=== PATIENT | male | born 1945 | race Caucasian/White ===

== ENCOUNTER 2018-03-23 06:00 | Inpatient (IN) | payer MEDICARE ==
[2018-03-20 10:38] LABS: BASOPHILS % 0.4 % (0.0-1.0); EOSINOPHILS # (AUTO) 0.3 (0.0-0.4); HEMATOCRIT 47.6 % (38.2-49.6); HEMOGLOBIN 15.9 g/dL (14.0-18.0); LYMPHOCYTES % 26.2 % (18.0-39.1); MEAN CORPUSCULAR HEMOGLOBIN 29.4 pg (28-32); MEAN CORPUSCULAR HGB CONC 33.4 g/dL (31-35); MEAN CORPUSCULAR VOLUME 88.1 fL (81-99); MONOCYTES # (AUTO) 0.6 (0.2-0.8); MONOCYTES % 7.5 % (4.4-11.3); NEUTROPHILS # (AUTO) 4.7 (2.1-6.9); NEUTROPHILS % 61.4 % (38.7-80.0); PLATELET COUNT 196 x10e3/uL (140-360); RED CELL DISTRIBUTION WIDTH 13.9 % (11.7-14.4)
--- NOTE | 2018-03-20 11:19 | Diagnostic Imaging Report ---
PROCEDURE: Frontal and lateral views of the chest. COMPARISON: Portable chest 01/27/2017. INDICATIONS: PREOP CXR FINDINGS: Lines/tubes: None. Lungs: The lungs are well inflated and clear. There is no evidence of pneumonia or pulmonary edema. Pleura: There is no pleural effusion or pneumothorax. Stable tenting of the right hemidiaphragm. Heart and mediastinum: The heart and the mediastinum are normal. Atherosclerotic calcifications. Bones: No acute bony abnormality. Degenerative changes of the thoracic spine. IMPRESSION: No acute radiographic abnormality. Stable tenting of the right hemidiaphragm. Dictated by: Jesus Boswell M.D. on 03/20/2018 at 11:21 Electronically approved by: Jesus Boswell M.D. on 03/20/2018 at 11:21
[~2018-03-23] VITALS: Ht 182.9 cm; Wt 90.3 kg
[~2018-03-23 06:00] MED LIST: AMIODARONE HCL200 MG PO; COUMADIN2 MG; LISINOPRIL2.5 MG PO; METOPROLOL TART25 MG PO; ROPIVACAINE 246.25 MG, EPINEPHRINE HCL 1:1000 0.5 MG, CLONIDINE HCL 0.08 MG, KETOROLAC ... INJ ONE; WARFARIN SODIU2.5 MG PO; WARFARIN SODIUM1 MG PO
--- OUTSIDE RECORDS SUMMARY | 2018-03-23 06:02 | XMS REPORT ---
Author Author [facility] Address Unknown Phone Unavailable Care Team Providers Care Emergency Telecommunications Dispatcher Name Role Phone LALIT DOBBS Unavailable Unavailable Problems This patient has no known problems. Allergies, Adverse Reactions, Alerts This patient has no known allergies or adverse reactions. Medications This patient has no known medications. Results Test Description Test Time Test Comments Text Results Atomic Results Result Comments CHEST 2 VIEWS [place] [id number] Patient Name: FLAVIO GRAHAM MR #: [id number] : 1945 Age/Sex: 73/M Req #: [id number] Adm Physician: Ordered by: LALIT DOBBS MD Report #: [id number] Location: OR Room/Bed: Procedure: [id number] DX/ CHEST 2 VIEWS Exam Date: 03/20/18 Exam Time: 1054 REPORT STATUS: Signed PROCEDURE: Frontal and lateral views of the chest. COMPARISON: Portable chest 01/27/2017. INDICATIONS: PREOP CXR FINDINGS: Lines/tubes: None. Lungs: The lungs are well inflated and clear. There is no evidence of pneumonia or pulmonary edema. Pleura: There is no pleural effusion or pneumothorax. Stable tenting of the right hemidiaphragm. Heart and mediastinum: The heart and the mediastinum are normal. Atherosclerotic calcifications. Bones: No acute bony abnormality. Degenerative changes of the thoracic spine. IMPRESSION: No acute radiographic abnormality. Stable tenting of the right hemidiaphragm. Dictated by: Cortney Mike M.D. on 03/20/2018 at 11: 21 Electronically approved by: Cortney Mike M.D. on 03/20/2018 at 11:21 Dictated By: CORTNEY MIKE MD 1121 Transcribed By: TAMI on 03/20/18 1121 COPY TO : LALIT DOBBS MD
[2018-03-23] MEDS ORDERED: BACITRACIN 50,000 UNIT VIAL ONE (06:43)
[2018-03-23] MEDS ORDERED: TRANEXAMIC ACID 1,000 MG/10 ML ML ONE (06:43)
[2018-03-23] MEDS ORDERED: MUPIROCIN 2% OINT 22 GM TUBE ONE (06:43)
[2018-03-23] MEDS ORDERED: CELECOXIB 200 MG CAP ONE (06:50)
[2018-03-23] MEDS ORDERED: GABAPENTIN 300 MG CAP ONE (06:50)
[2018-03-23] MEDS ORDERED: DEXAMETHASONE SOD PHOS 10 MG/1 ML VIAL ONE (06:50)
[2018-03-23] MEDS ORDERED: CEFAZOLIN SOD 2 GM/D5W 50ML 50 ML IV ONE (06:51)
[2018-03-23] MEDS ORDERED: BUPIVACAINE 7.5MG/ML /DEXTROSE 82.5MG/ML 2 ML AMP INJ ONE (07:32)
[2018-03-23 07:42] LABS: INR 1.13; PROTHROMBIN TIME 13.6 seconds (11.9-14.5)
[2018-03-23 07:43] LABS: PARTIAL THROMBOPLASTIN TIME 28.7 seconds (23.8-35.5)
[2018-03-23] MEDS: SODIUM CHLORIDE 0.9% 1000ML 1,000 ML IV SCH ×2 (10:03→17:02)
[2018-03-23] MEDS ORDERED: HYDROCODONE/APAP 7.5MG-325MG 1 EA TAB PO PRN ×2 (10:15)
[2018-03-23] MEDS ORDERED: HYDROCODONE/APAP 5MG-325MG TAB PO PRN ×2 (10:15)
[2018-03-23] MEDS ORDERED: ZOLPIDEM TARTRATE 5 MG TAB PO PRN (10:15)
[2018-03-23] MEDS ORDERED: PROMETHAZINE HCL (IM) 25 MG/ML VIAL INJ PRN (10:15)
[2018-03-23] MEDS ORDERED: DIPHENHYDRAMINE HCL INJ 50 MG/ML VIAL IM/IV PRN (10:15)
[2018-03-23] MEDS ORDERED: DOCUSATE SODIUM 100 MG CAP PO PRN (10:15)
[2018-03-23] MEDS ORDERED: KETOROLAC TROMETHAMINE 30 MG/ML VIAL IV PRN (10:15)
[2018-03-23] MEDS ORDERED: ONDANSETRON HCL INJ 2 MG/ML VIAL IV PRN (10:15)
[2018-03-23] MEDS ORDERED: ACETAMINOPHEN 650 MG SUPP PR PRN (10:15)
[2018-03-23] MEDS ORDERED: ONDANSETRON HCL 4 MG ORAL DISINTEGRATING TAB SL PRN (10:30)
--- NOTE | 2018-03-23 10:58 | Diagnostic Imaging Report ---
PROCEDURE:X-RAY PELVIS, AP VIEW COMPARISON:None. INDICATIONS:STATUS POST RIGHT HIP SURGERY FINDINGS: Refer to conclusion CONCLUSION: Status post total right hip arthroplasty with intact acetabular cup and femoral stem components. Overlying subcutaneous gas and skin alyse compatible with recent surgery. Cortical step-off along the lateral aspect of the proximal femoral diaphysis adjacent to the orthopedic hardware compatible with a nondisplaced fracture. Partially visualized left proximal femoral surgical hardware. Dictated by: John Paul Nieves M.D. on 03/23/2018 at 11:00 Electronically approved by: John Paul Nieves M.D. on 03/23/2018 at 11:00
[2018-03-23] MEDS ORDERED: ACETAMINOPHEN 1000 MG/100 ML IV SCH (12:00)
[2018-03-23 13:50] VITALS: BP 100/64
[2018-03-23] MEDS ORDERED: CEFAZOLIN SOD 1 GM/NS 50ML 50 ML IV SCH ×2 (14:00)
--- NOTE | 2018-03-23 14:01 | Operative Report ---
DATE OF PROCEDURE: March 23, 2018 BEARING INSPECTOR: Gabriel Dudley PA-C The patient was brought to the operating room for induction of anesthesia. Throughout this case, my PA's assistance was necessary for retraction of soft tissue and positioning of the extremity. This allows for efficient and technically successful execution of the operation and is considered medically necessary. PREOPERATIVE DIAGNOSIS: Posttraumatic osteoarthritis, right hip. POSTOPERATIVE DIAGNOSIS: Posttraumatic osteoarthritis, right hip. PROCEDURE: Right hip hardware removal and conversion to total hip arthroplasty. INDICATIONS: The patient is a 73-year-old gentleman who has advanced osteoarthritis of his right hip. He is status post a femoral neck fracture some years ago treated with cannulated screws. The findings and options have been discussed. We plan on hardware removal and conversion to a total hip arthroplasty. The risks and benefits were explained. He states he understands and wishes to proceed. DESCRIPTION OF PROCEDURE: The patient was brought to the operating room and given a spinal anesthetic. He received prophylactic antibiotics and tranexamic acid in the holding area. He was positioned in the left lateral decubitus position. His right hip was prepped and draped in a sterile manner. A preoperative time out was performed. Initial attention was directed towards removing the 3 cannulated screws. A posterior approach was made to the right hip. The tensor fascia and gluteal fascia were incised. A deep Charnley retractor was placed. Without extending the incision, I could place my finger down the lateral thigh and palpate the head of the screw. A secondary poke hole incision was made in the distal right thigh. The screwdriver was advanced through this incision, and ultimately allowed me to remove all 3 cannulated screws. Attention was then directed towards the hip. The posterior capsule was carefully exposed. Hemostasis was obtained with electrocautery. The short external rotators were released. The hip was noted to be markedly contracted. A posterior capsulotomy was performed. The hip was dislocated. Complete loss of articular cartilage was noted. A large posterior osteophyte was noted on the femoral head. An oscillating saw was used to resect the femoral head. Acetabular retractors were placed. The remnant of the labrum was excised. The true floor of the acetabulum was then established with a 46-mm reamer. The socket was then carefully reamed up to 57 mm. A Colleen [employer] osteo-T shell was then impacted into place. This had a 58 mm outer diameter. Fixation was felt to be good, but was augmented with a single 25-mm screw placed into the ilium. A highly cross link polyethylene liner with a 36 mm inner diameter was then seated into place. Care was taken to make sure that there was no evidence of soft tissue interposition. Throughout this portion of the case, the hip was thoroughly irrigated a number of different times using a shower-tip pulsatile lavage. A large anterior osteophyte off the anterior rim of the socket was then excised with a curved osteotome. The socket was packed with a moistly soaked lap sponge. Attention was directed towards the proximal femur. A box cutting osteotome and taper pin reamer were used to establish entry into the femoral canal. The Taperloc broaches were then impacted. It took an 18-mm stem to provide good canal fill and rotational stability for trial reductions. A +3-mm head was felt to optimally restore limb length and provide stability. The trial implants were removed. The hip was further irrigated with a pulsatile lavage. A 100 mL premixed pericapsular injection was placed around the soft tissue. The implants were seated and a final reduction was performed. A ceramic head was chosen. The posterior capsulotomy was then repaired with interrupted #2 Ethibond. The short external rotators were contracted and not repairable. The tensor fascia and gluteal fascia were closed with interrupted #2 Ethibond. The skin was closed with subcuticular Vicryl and alyse. A sterile bandage was applied. He was returned to the supine position and transported to the recovery room in stable condition. Estimated blood loss was 100 mL. At the end the procedure, all needle and sponge counts were correct. Job#: [id number] JOHN
[2018-03-23 14:18] VITALS: BP 100/64
[2018-03-23] MEDS ORDERED: FENTANYL CITRATE/PF 100MCG/2 ML INJ ONE (14:46)
[2018-03-23] MEDS ORDERED: MIDAZOLAM HCL 2 MG/2 ML VIAL ONE (14:46)
[2018-03-23 16:04] VITALS: BP 82/50
[2018-03-23] MEDS: METOPROLOL TARTRATE 25 MG TAB PO SCH (16:04)
[2018-03-23] MEDS: CEFAZOLIN SOD 1 GM VIAL IV SCH (16:45)
[2018-03-23] MEDS ORDERED: CELECOXIB 100 MG CAP PO SCH (17:00)
[2018-03-23] MEDS: CELECOXIB 200 MG CAP PO SCH (17:45)
[2018-03-23] MEDS: ASPIRIN 325 MG TAB PO SCH (17:45)
[2018-03-23] MEDS: ACETAMINOPHEN 1000 MG/100 ML IV SCH (17:45)
[2018-03-23] MEDS ORDERED: DEXAMETHASONE SOD PHOS INJ 4 MG/ML VIAL ONE (19:43)
[2018-03-23] MEDS ORDERED: PROPOFOL IV EMULSION 10 MG/ML 20 ML VIAL ONE (19:43)
[2018-03-23] MEDS ORDERED: LIDOCAINE HCL 2% LOCAL INJ 5 ML SDV VIAL INJ ONE (19:43)
[2018-03-23 20:00] VITALS: BP 89/54
[2018-03-23 20:35] VITALS: BP 89/54
[2018-03-24] VITALS: BP 103/52
[2018-03-24] MEDS: ACETAMINOPHEN 1000 MG/100 ML IV SCH ×2 (01:14→05:55)
[2018-03-24] MEDS: SODIUM CHLORIDE 0.9% 1000ML 1,000 ML IV SCH (01:14)
[2018-03-24] MEDS: CEFAZOLIN SOD 1 GM VIAL IV SCH ×2 (01:46→08:17)
[2018-03-24 04:00] VITALS: BP 92/55
[2018-03-24 07:08] LABS: HEMATOCRIT 32.3 % (38.2-49.6)
[2018-03-24 08:09] VITALS: BP 92/53
[2018-03-24] MEDS: CELECOXIB 200 MG CAP PO SCH (08:17)
[2018-03-24] MEDS: ASPIRIN 325 MG TAB PO SCH (08:17)
[2018-03-24] MEDS: METOPROLOL TARTRATE 25 MG TAB PO SCH (08:18)
[2018-03-24 09:37] VITALS: BP 92/53
[2018-03-24] MEDS ORDERED: ACETAMINOPHEN 1000 MG/100 ML IV PRN ×2 (10:15)
[2018-03-24 13:25] VITALS: BP 102/52
== END 2018-03-24 14:41 | disposition home health service (06) | DRG 470 ==
LOC: OR 06:00 → MED/SURG 13:10
PROVIDERS: ADMIT Specialist; ATTEND Specialist
PROC: 0SR9039 Replacement of Right Hip Joint with Ceramic Synthetic Substitute, Cemented, Open Approach (ICD-10-PCS; principal; 2018-03-23 08:00)
DX: M16.51 Unilateral post-traumatic osteoarthritis, right hip (principal); S72.04 Fracture of base of neck of femur; M17.11 Unilateral primary osteoarthritis, right knee; I48.91 Unspecified atrial fibrillation; Z86.711 Personal history of pulmonary embolism; I25.10 Atherosclerotic heart disease of native coronary artery without angina pectoris; D64.9 Anemia, unspecified; I95.9 Hypotension, unspecified; Z79.01 Long term (current) use of anticoagulants
CPT/HCPCS: 36415; 71046; 72170; 85014; 85018; 85025; 85610; 85730; 86850; 86900; 86920; C1713; J0171; J0690; J1100; J1885; J2001; J2250; J2795; J7030

== ENCOUNTER 2018-04-08 09:59 | Outpatient (RCR) | payer MEDICARE ==
[~2018-04-08 09:59] MED LIST changes: -ROPIVACAINE 246.25 MG, EPINEPHRINE HCL 1:1000 0.5 MG, CLONIDINE HCL 0.08 MG, KETOROLAC ... INJ ONE
== END 2018-04-09 ==
LOC: PT 09:59
PROVIDERS: ATTEND Physician Assistant
DX: Z96.641 Presence of right artificial hip joint (principal); Z47.1 Aftercare following joint replacement surgery; M16.11 Unilateral primary osteoarthritis, right hip
CPT/HCPCS: 97110 ×6; 97162; G8978; G8979

== ENCOUNTER 2018-04-24 10:51 | Outpatient (RCR) | payer MEDICARE | END 2018-05-09 | LOC: PT 10:51 | PROVIDERS: ATTEND Physician Assistant | DX: Z96.641 Presence of right artificial hip joint (principal); Z47.1 Aftercare following joint replacement surgery; M16.11 Unilateral primary osteoarthritis, right hip; M25.551 Pain in right hip; M62.81 Muscle weakness (generalized); R26.2 Difficulty in walking, not elsewhere classified | CPT/HCPCS: 97110 ×7; 97116; G8978; G8979 ==

== ENCOUNTER 2019-02-02 10:12 | Emergency (ER) | payer MEDICARE, OTHER ==
[~2019-02-02] VITALS: Ht 182.9 cm; Wt 85.3 kg
[2019-02-02 10:39] LABS: BASOPHILS # (AUTO) 0.1 (0.0-0.1); BASOPHILS % 0.6 % (0.0-1.0); EOSINOPHILS # (AUTO) 0.3 (0.0-0.4); HEMOGLOBIN 15.8 g/dL (14.0-18.0); LYMPHOCYTES # (AUTO) 1.9 (1.0-3.2); LYMPHOCYTES % 25.1 % (18.0-39.1); MEAN CORPUSCULAR HGB CONC 32.2 g/dL (31-35); MEAN CORPUSCULAR VOLUME 90.1 fL (81-99); MONOCYTES # (AUTO) 0.6 (0.2-0.8); MONOCYTES % 7.9 % (4.4-11.3); NEUTROPHILS # (AUTO) 4.8 (2.1-6.9); NEUTROPHILS % 61.9 % (38.7-80.0); PLATELET COUNT 300 x10e3/uL (140-360); RED BLOOD COUNT 5.44 x10e6/uL (4.3-5.7); RED CELL DISTRIBUTION WIDTH 14.2 % (11.7-14.4)
[2019-02-02 10:45] LABS: INR 2.14; PROTHROMBIN TIME 24.6 seconds (11.9-14.5)
[2019-02-02 10:46] LABS: PARTIAL THROMBOPLASTIN TIME 43.2 seconds (23.8-35.5)
[2019-02-02 10:54] LABS: ALANINE AMINOTRANSFERASE 14 IU/L (0-55); ALBUMIN 3.5 g/dL (3.5-5.0); ALBUMIN/GLOBULIN RATIO 0.8 (0.8-2.0); ALKALINE PHOSPHATASE 55 IU/L (40-150); BLOOD UREA NITROGEN 13 mg/dL (7-26); BUN/CREATININE RATIO 15 (6-25); CALCIUM 9.3 mg/dL (8.4-10.2); CARBON DIOXIDE 25 mmol/L (22-29); CHLORIDE 101 mmol/L (98-107); CREATINE KINASE 71 IU/L (30-200); CREATININE, SERUM 0.84 mg/dL (0.72-1.25); EST GLOMERULAR FILTRATION RATE > 60 ML/MIN (60-); GLUCOSE 70 mg/dL (74-118); SODIUM 135 mmol/L (136-145)
[2019-02-02 11:51] LABS: CLARITY,URINE CLEAR (CLEAR); COLOR,URINE YELLOW (YELLOW)
[2019-02-02 11:52] LABS: BILIRUBIN,URINE NEGATIVE (NEGATIVE); KETONES,URINE NEGATIVE (NEGATIVE); LEUKOCYTE ESTERASE ,URINE NEGATIVE (NEGATIVE); NITRITE,URINE NEGATIVE (NEGATIVE); PROTEIN,URINE DIPSTICK NEGATIVE (NEGATIVE); URINE UROBILINOGEN 0.2 mg/dL (0.2 - 1)
--- NOTE | 2019-02-02 11:53 | Diagnostic Imaging Report ---
A single frontal view of the chest. HISTORY: CHEST PAIN COMPARISON: Chest radiographs March 20, 2018 DISCUSSION: Portable technique, limits sensitivity of the exam. Tubes/Lines: None Lungs and pleura: Similar appearing bibasilar mild volume loss, left greater than right, compatible with scarring. No evidence of a consolidative pneumonia or pulmonary alveolar edema. No definite pleural effusion or pneumothorax is identified. Heart and mediastinum: The cardiomediastinal silhouette appears unremarkable. Bones and soft tissues: Appear unremarkable, given this limited exam. IMPRESSION: 1. No acute radiographic abnormality. 2. Mild bibasilar scarring. Signed by: Dr. Ron Bray D.O., M.M.M. on 02/02/2019 11:50 AM
[2019-02-02 12:01] LABS: BACTERIA,URINE FEW /HPF; EPITHELIAL CELLS,URINE RARE /LPF; WBC,URINE (MAN) 0-5 /HPF (0-5)
== END 2019-02-02 13:07 | disposition home or self-care (01) ==
LOC: ER 10:12
DX: R09.1 Pleurisy (principal); R05 Cough; R07.89 Other chest pain; I10 Essential (primary) hypertension; Z86.718 Personal history of other venous thrombosis and embolism; Z79.01 Long term (current) use of anticoagulants
CPT/HCPCS: 36415; 71045; 80053; 81001; 82550; 82553; 83880; 84484; 85025; 85610; 85730; 93005; 99283

== ENCOUNTER 2021-08-27 22:05 | Observation (INO) | payer MEDICARE, OTHER ==
[~2021-08-27] VITALS: Ht 182.9 cm; Wt 85.3 kg
[2021-08-27] MEDS ORDERED: METOPROLOL TARTRATE INJ 1 MG/ML VIAL IV ONE (22:30)
[2021-08-27] MEDS ORDERED: SODIUM CHLORIDE 0.9% 1000ML 1,000 ML IV SCH (22:30)
[2021-08-27 22:43] LABS: BASOPHILS % 0.4 % (0.0-1.0); EOSINOPHILS # (AUTO) 0.4 (0.0-0.4); EOSINOPHILS % 3.5 % (0.0-6.0); HEMATOCRIT 47.3 % (38.2-49.6); HEMOGLOBIN 15.4 g/dL (14.0-18.0); LYMPHOCYTES # (AUTO) 2.9 (1.0-3.2); LYMPHOCYTES % 29.2 % (18.0-39.1); MEAN CORPUSCULAR HEMOGLOBIN 29.7 pg (28-32); MEAN CORPUSCULAR HGB CONC 32.6 g/dL (31-35); MEAN CORPUSCULAR VOLUME 91.1 fL (81-99); MONOCYTES # (AUTO) 0.8 (0.2-0.8); MONOCYTES % 7.8 % (4.4-11.3); NEUTROPHILS # (AUTO) 5.8 (2.1-6.9); NEUTROPHILS % 58.3 % (38.7-80.0); PLATELET COUNT 213 x10e3/uL (140-360); RED BLOOD COUNT 5.19 x10e6/uL (4.3-5.7); RED CELL DISTRIBUTION WIDTH 13.8 % (11.7-14.4)
[2021-08-27 22:58] LABS: ALBUMIN 3.4 g/dL (3.5-5.0); ALBUMIN/GLOBULIN RATIO 0.8 (0.8-2.0); ANION GAP 15.9 mmol/L (8-16); CALCIUM 8.7 mg/dL (8.4-10.2); CREATININE, SERUM 0.83 mg/dL (0.72-1.25); POTASSIUM 3.9 mmol/L (3.5-5.1)
[2021-08-27] MEDS ORDERED: AMIODARONE HCL 150MG 100 ML IV STA (23:53)
[2021-08-28] VITALS (8 sets, daily range): BP systolic 91–133; BP diastolic 57–84
[2021-08-28] MEDS ORDERED: AMIODARONE HCL 150MG 100 ML ONE (00:06)
[2021-08-28] MEDS ORDERED: DILTIAZEM HCL 5 MG/ML 5 ML VIAL IV STA (00:57)
[2021-08-28] MEDS ORDERED: ACETAMINOPHEN 325 MG TAB PO PRN (10:15)
[2021-08-28] MEDS ORDERED: DOCUSATE SODIUM 100 MG CAP PO PRN (10:15)
[2021-08-28] MEDS ORDERED: ONDANSETRON HCL INJ 2MG/ML 2ML 2 MG/ML VIAL IV PRN (10:15)
[2021-08-28] MEDS: DIGOXIN 0.125 MG TAB PO SCH (11:00)
[2021-08-28] MEDS ORDERED: SODIUM CHLORIDE 0.9% 500ML 500 ML IV ONE (11:15)
[2021-08-28] MEDS ORDERED: SODIUM CHLORIDE 0.9% 250ML 250 ML ONE (11:15)
[2021-08-28] MEDS ORDERED: AMIODARONE 900MG 500 ML IV ONE (11:30)
[2021-08-28 13:02] LABS: INR 2.62; PROTHROMBIN TIME 28.9 seconds (11.9-14.5)
[2021-08-28 14:11] LABS: CHOL/HDL RATIO 4.6 (3.9-4.7)
[2021-08-28] MEDS: FAMOTIDINE 20 MG TAB PO SCH (16:46)
[2021-08-28] MEDS ORDERED: ZOLPIDEM TARTRATE 5 MG TAB PO PRN (21:00)
[2021-08-29] VITALS: BP 137/96
[2021-08-29 04:00] VITALS: BP 95/75
[2021-08-29 05:02] LABS: BASOPHILS # (AUTO) 0.1 (0.0-0.1); BASOPHILS % 0.5 % (0.0-1.0); EOSINOPHILS # (AUTO) 0.3 (0.0-0.4); EOSINOPHILS % 3.1 % (0.0-6.0); HEMATOCRIT 40.9 % (38.2-49.6); HEMOGLOBIN 13.5 g/dL (14.0-18.0); LYMPHOCYTES % 18.2 % (18.0-39.1); MEAN CORPUSCULAR HEMOGLOBIN 29.7 pg (28-32); MEAN CORPUSCULAR VOLUME 89.9 fL (81-99); MONOCYTES # (AUTO) 1.1 (0.2-0.8); MONOCYTES % 10.3 % (4.4-11.3); NEUTROPHILS # (AUTO) 7.3 (2.1-6.9); PLATELET COUNT 200 x10e3/uL (140-360); RED BLOOD COUNT 4.55 x10e6/uL (4.3-5.7); RED CELL DISTRIBUTION WIDTH 13.5 % (11.7-14.4)
[2021-08-29 05:16] LABS: CALCIUM 7.9 mg/dL (8.4-10.2); CREATININE, SERUM 0.75 mg/dL (0.72-1.25)
[2021-08-29] MEDS ORDERED: DIGOXIN125 MCG PO (05:37)
[2021-08-29 07:25] VITALS: BP 95/75
[2021-08-29] MEDS: FAMOTIDINE 20 MG TAB PO SCH (08:32)
[2021-08-29] MEDS: DIGOXIN 0.125 MG TAB PO SCH (08:33)
[2021-08-29] MEDS ORDERED: AMIODARONE HCL200 MG PO (14:53)
[2021-08-29] MEDS ORDERED: WARFARIN SOD 2.5 MG TAB PO SCH (17:00)
== END 2021-08-29 16:00 | disposition home or self-care (01) ==
LOC: ER 22:17 → ERHOLD 08-28 00:03 → IMCU 08-28 00:53
PROVIDERS: ADMIT Internal Medicine; ATTEND Internal Medicine
DX: I48.91 Unspecified atrial fibrillation (principal); Z79.01 Long term (current) use of anticoagulants; I10 Essential (primary) hypertension; I95.9 Hypotension, unspecified; Z86.718 Personal history of other venous thrombosis and embolism
CPT/HCPCS: 36415 ×3; 71045; 80048; 80053; 80061; 83880; 84484; 85025 ×2; 85610; 93005; 99284; G0378 ×2; J7030; J7040; J7050; U0002